=== PATIENT | female | born 1980 | race Caucasian/White ===

== ENCOUNTER 2021-03-10 14:51 | Outpatient (CLI) | payer BC, SELFPAY ==
--- NOTE | 2021-03-10 15:01 | MM_ITS ---
WS: [id number] SCREENING DIGITAL MAMMOGRAM WITH CAD HISTORY: SCREENING COMPARISON: None available. Bilateral CC and MLO views submitted. Computer aided detection analyzed. Breast composition: There are scattered areas of fibroglandular density. Ovoid 5 mm nodule in the lat eral RIGHT breast is probably above the nipple line on the lateral projection at a middle depth. No a ssociated calcification. There is an additional 5 mm nodule in the anterior LEFT breast near 4:00. MM/[place] [id number] IMPRESSION: BI-RADS: 0-Incomplete: Need additional imaging evaluation FOLLOW UP: Need Additional Imaging Bilateral breast: Spot compression views (CC and MLO). True ML. Ultrasound to f ollow if abnormality persists.
== END 2021-03-10 14:52 | disposition home or self-care (01) ==
PROVIDERS: PCP Nurse Practitioner Family; Visit Provider Nurse Practitioner Family
DX: Z12.31 Encounter for screening mammogram for malignant neoplasm of breast (principal)
CPT/HCPCS: 77067

== ENCOUNTER 2021-04-06 08:19 | Outpatient (CLI) | payer BC, SELFPAY ==
--- NOTE | 2021-04-06 08:25 | US_ITS ---
WS: [id number] BILATERAL ADDITIONAL VIEWS, DIGITAL MAMMOGRAM WITH CAD Bilateral breast ultrasound, limited HISTORY: ABNORMAL MAMMOGRAM BILATERAL BREASTS COMPARISON: None available. Technique: Bilateral ML views. Spot compression cc and MLO views. Breast composition: There are scattered areas of fibroglandular density. The asymmetries persist jonnie aterally. In the RIGHT breast there is a lobulated 5 mm nodule which is reniform shape near 10:00 at the mid to posterior depth. This may be a lymph node. In the LEFT breast near 5:00 is a round nodule measuring 5 mm. Both of these areas will undergo ultrasound evaluation. Bilateral breast ultrasound, limited. RIGHT breast: At 10:00, 4 cm from the nipple is a reniform shaped nodule which is probably a lymph no de measuring 5 x 2 x 3 mm. This may be 2 adjacent cysts. No solid component. LEFT breast: At 5:00, 2 cm nipple is a cyst measuring 4 x 2.4 mm. US/US breast BI limited* [id number] IMPRESSION: BI-RADS: 2-Benign FOLLOW UP: 1 Year Follow-up
== END 2021-04-06 08:20 | disposition home or self-care (01) ==
LOC: RADSHAW 08:22
PROVIDERS: PCP Nurse Practitioner Family; Visit Provider Nurse Practitioner Family
DX: R92.8 Other abnormal and inconclusive findings on diagnostic imaging of breast (principal); N63.11 Unspecified lump in the right breast, upper outer quadrant; N63.23 Unspecified lump in the left breast, lower outer quadrant
CPT/HCPCS: 76642; 77066

== ENCOUNTER 2023-12-17 09:36 | Outpatient (CLI) | payer OTHER, SELFPAY ==
--- NOTE | 2023-12-17 09:47 | XRR_ITS ---
PROCEDURE INFORMATION: Exam: XR Left Foot Exam date and time: 12/17/2023 9:54 AM Age: 43 years old Clinical indication: Pain; Foot and heel; Left; Patient HX: Patient states possible bone spur or achilles injury, x1 month no specific injury; Additional info: L achilles tendinitis/l heel pain TECHNIQUE: Imaging protocol: Radiologic exam of the left foot. Views: 3 or more views. COMPARISON: No relevant prior studies available. FINDINGS: Bones/joints: No acute fracture or dislocation. Mineralization is normal. Joint spacing and alignment are maintained. Spurring at the medial malleolus as well as the tibial plafond. Plantar calcaneal enthesophyte. Soft tissues: Mild hazy opacification at the lower Kager's fat pad with slight indistinctness of the adjacent Achilles tendon shadow. XR/XR foot LT min 3V* [id number] IMPRESSION: 1. No acute fracture or dislocation. 2. Mild hazy opacification at the inferior Kager's fat pad with slight indistinctness of the adjacent Achilles tendon shadow may represent acute and/or chronic tendinopathy, possibly bursitis. 3. Plantar calcaneal enthesophyte.
== END 2023-12-17 09:37 | disposition home or self-care (01) ==
LOC: RAD 09:41
PROVIDERS: PCP Nurse Practitioner Family; Visit Provider Nurse Practitioner Family
DX: M76.62 Achilles tendinitis, left leg (principal); M77.32 Calcaneal spur, left foot
CPT/HCPCS: 73630

== ENCOUNTER 2024-03-31 15:26 | Outpatient (CLI) | payer OTHER, SELFPAY ==
--- NOTE | 2024-03-31 16:00 | MRR_ITS ---
PROCEDURE INFORMATION: Exam: MR Left Lower Extremity Joint Without Contrast; Ankle Exam date and time: 03/31/2024 3:50 PM Age: 43 years old Clinical indication: Injury or trauma; Other: Not specified; Sprain or strain; Ankle; Left; Additional info: Looking for tears in the achillies tendon, patient requests only feet in the machine due to anxiety TECHNIQUE: Imaging protocol: Magnetic resonance imaging of the left lower extremity without contrast. Exam focused on the ankle. COMPARISON: CR XR foot LT min 3V* [id number] 12/17/2023 9:54 AM FINDINGS: Bones/joints: A moderate plantar and mild posterior calcaneal enthesophyte formation is identified. Mild osteophyte formation and joint space narrowing of the tibiotalar and talonavicular joints is present. The articular cartilage appears intact. No acute fracture. Well corticated ossified bodies inferior to the medial malleolus are identified, measuring up to 1.4 x 0.4 x 1.0 cm on series 901, image 18. Minimal bone marrow edema in the distal fibula is present. LIGAMENTS: Distal tibiofibular syndesmosis: Unremarkable. No tear. Anterior talofibular ligament: A full-thickness tear of the anterior talofibular ligament is present. Posterior talofibular ligament: Unremarkable. No tear. Calcaneofibular ligament: Unremarkable. No tear. Deltoid ligament complex: Mild to moderate amorphous intrasubstance abnormal increased signal intensity within the deep fibers of the deltoid ligamentous present. TENDONS: Flexor tendons of foot: Unremarkable as visualized. Tibialis posterior tendon: Mild abnormal fluid in the tibialis posterior tendon sheath is present. Peroneal tendons: Mild intrasubstance abnormal increased signal intensity is noted in the proximal peroneus brevis tendon with evidence of a small focus of intrasubstance/longitudinal tearing. Extensor tendons of foot: Unremarkable as visualized. Tibialis anterior tendon: Unremarkable as visualized. Achilles tendon: Moderate fusiform abnormal thickening and heterogeneous intrasubstance increased signal intensity of the Achilles tendon is present. Tarsal canal (Sinus tarsi): Unremarkable. Normal signal of the fat. Tarsal tunnel: Unremarkable. Soft tissues: Extensive atrophy of the abductor digiti minimi muscle is noted. Moderate fluid in the retrocalcaneal bursa is present with adjacent edema in the pre Achilles fat pad. Mild distal soleus muscle edema. Plantar fascia: Moderate abnormal thickening and increased signal intensity of the proximal plantar fascial is present primarily involving the central bundle. MR/MR ankle LT wo con* [id number] IMPRESSION: 1. Moderate Achilles tendinosis, associated with retrocalcaneal bursitis. 2. Moderate plantar fasciitis. 3. Full-thickness tear of the anterior talofibular ligament. 4. Mild peroneus brevis tendinosis and intrasubstance/longitudinal tearing 5. Mild bone marrow edema in the distal fibula, suggestive of mild contusion. No acute fracture. 6. 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 7. Mild tibialis posterior tenosynovitis. 8. Sprain versus partial tear of the deep fibers the deltoid ligament. 9. 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 10. Mild distal soleus muscle edema, which can be related to strain.
== END 2024-03-31 15:27 | disposition home or self-care (01) ==
PROVIDERS: PCP Nurse Practitioner Family; Visit Provider Podiatrist Foot & Ankle Surgery
DX: S86.012A Strain of left Achilles tendon, initial encounter (principal); M72.2 Plantar fascial fibromatosis; S93.492A Sprain of other ligament of left ankle, initial encounter; S93.422A Sprain of deltoid ligament of left ankle, initial encounter; R93.89 Abnormal findings on diagnostic imaging of other specified body structures; M19.072 Primary osteoarthritis, left ankle and foot; M65.872 Other synovitis and tenosynovitis, left ankle and foot; M62.572 Muscle wasting and atrophy, not elsewhere classified, left ankle and foot; X58.XXXA Exposure to other specified factors, initial encounter
CPT/HCPCS: 73721